=== PATIENT | male | born 1975 | race Caucasian/White ===

== ENCOUNTER 2020-08-31 10:30 | Observation (INO) ==
[2020-08-31] MEDS ORDERED: AMPICILLIN/SULBACTAM SOD 3,000 MG in 0.9 % SODIUM CHLORIDE 100 ML IV STA (10:59)
[2020-08-31] MEDS ORDERED: LIDOCAINE/EPINEPHRINE 1% 20 ML VIAL INFIL ONE (10:59)
[2020-08-31] MEDS ORDERED: dexAMETHasone**PF** 10 MG/ML VIAL IV ONE (10:59)
[2020-08-31] MEDS ORDERED: BENZOCAINE/TETRACAIN/BUTAM CAN 200 APPLN/20 GM CAN EXT STA (10:59)
--- NOTE | 2020-08-31 11:23 | ENT Consultation ---
Date of Consultation August 31, 2020 Assessment & Plan (1) Peritonsillar abscess: Unasyn and 10 mg dexamethasone in the ED. DC on 14 days Augmentin and medorl dose pack as long as feeling better. Soft diet for 48 hours. 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 History of Present Illness Few days of sore throat, ear pain and difficulty swallowing, no dyspnea Allergies Allergy/AdvReac Type Severity Reaction Status Date / Time [id number] Allergy Unknown Uncoded 08/17/04 17:29 Patient History Social History Smoking Status: Never smoker Feels Safe at Home: Yes Review of Systems Review of Systems: All systems reviewed & are unremarkable except as noted in HPI & below Physical Exam Physical Exam: AAox3 with hot potato voice oral cavity: 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 18 guage needle was then used to drain the abscess of several cc's of purulence. Patient tolerated the procedure well. Results & Data ([facility]) Vital Signs (Past 12 Hours) Vital Signs Temp Pulse Resp BP Pulse Ox 08/31/20 10:34 36.7 C 99 H 16 142/92 H 96
[2020-08-31 11:50] LABS: Basophils # (auto) 0.02 K/uL (0-0.2); Basophils % (auto) 0.2 %; Eosinophils # (auto) 0.06 K/uL (0-0.5); Eosinophils % (auto) 0.5 %; Hematocrit (blood only) 42.4 % (42-52); Hemoglobin 15.6 g/dL (14.0-18.0); Immature Granulocytes # (auto) 0.01 K/uL (0.00-0.02); Immature Granulocytes % (auto) 0.1 %; Lymphocytes # (auto) 1.69 K/uL (1.2-3.4); Mean Corpuscular Hemoglobin 31.7 pg (25-34); Mean Corpuscular Hgb Conc 36.8 g/dL (32-36); Mean Corpuscular Volume 86.2 fL (80-100); Mean Platelet Volume 9.4 fL (7.4-10.4); Monocytes % (auto) 8.3 %; Neutrophils # (auto) 9.25 K/uL (1.4-6.5); Neutrophils % (auto) 76.9 %; Platelet Count 214 K/uL (130-400); RDW Coefficient of Variation 12.1 % (11.5-14.5); RDW Standard Deviation 38.7 fL (36.4-46.3); Red Blood Count 4.92 M/uL (4.7-6.1); White Blood Count 12.03 K/uL (4.8-10.8)
[2020-08-31 12:02] LABS: BUN Creatinine Ratio 12.9 (10-20); Calcium 8.5 mg/dl (8.5-10.1); Creatinine Clr Calc Pharmacy 135.2 ml/min; Est GFR (African American) 130.4; Est GFR (Non-African American) 112.5; Potassium 3.9 mmol/L (3.5-5.1)
[2020-08-31 13:41] LABS: Influenza A virus by PCR Negative (Neg); Influenza B virus by PCR Negative (Neg); RSV by PCR Negative (Neg); SARS CoV2 RNA(COVID-19) InHosp NEGATIVE (Negative)
--- NOTE | 2020-08-31 14:22 | History & Physical Report ---
Date of Service August 31, 2020 Assessment & Plan (1) Peritonsillar abscess: Mr. Solis is a generally healthy 45 year old male who presents to [facility] ER today with a Left Peritonsillar Abscess. His complaints include left sided sore throat, left throat and ear pain(especially with swallowing), foreign body sensation, and difficulty swallowing over the past 4 days. When the foreign body sensation and difficulty swallowing were becoming worse he decided to come into the ER. No fevers, chil ls, headaches, or stiff neck. No vomiting, SOB, or stridor -- but his voice is different -- it's seem thicker than usual. He denies any chest pain. No wheezes or funny noises when he breathes. -- Evaluated by ENT in the ER. Abscess was drained by ENT. ENT recommends Medrol Dosepack and Augmentin x 14 days. -- Because patient has ongoing difficulty swallowing and ongoing foreign body sensation, decision was made to observe overnight. -- Continue IV Dexamethasone (received 10 mg in ER). -- Continue IV Unasyn. -- Diet as tolerated. -- Plan to discharge to home tomorrow if swallowing without difficulty and no airway compromise. Present on Admission?: Yes History of Present Illness Chief Complaint: -- Sore Throat, Left Sided. -- Difficult and Painful Swallowing. Primary Care Provider: Reddy Easley MD Mr. Solis is a generally healthy 45 year old male who presented to [facility] ER today complaining of a left sided sore throat, left throat and ear pain(especially with swallowing), foreign body sensation, and difficulty swallowing over the past 4 days. When the foreign body sensation and difficulty swallowing were getting worse he decided to come into the ER. No fevers, chills, headaches, or stiff neck. No vomiting, SOB, or stridor -- but his voice is different -- it's seem thicker than usual. He denies any chest pain. No wheezes or funny noises when he breathes. Allergies Allergy/AdvReac Type Severity Reaction Status Date / Time No Known Allergies Allergy Unverified 08/31/20 11:39 Home Medications Medication Instructions Recorded Confirmed Type No Known Home Medications 08/31/20 08/31/20 History amoxicillin-pot clavulanate 1 tab PO BID #28 tab 09/01/20 Rx [Augmentin] methylprednisolone [Medrol] See Rx Instructions .ROUTE 09/01/20 Rx .COMPLEX #21 tab Past Med/Surg History Social History Smoking Status: Never smoker Hx Alcohol Use: No Hx Substance Use: No Preferred Language: Georgian Communication Ability: Effective Beliefs That Will Affect Care: None Current Living Situation: Alone Feels Safe at Home: Yes Assistive Devices: None Review of Systems Review of Systems: All systems reviewed & are unremarkable except as noted in Subjective Physical Exam Physical Exam: GENERAL: Patient in no acute distress. HEENT: Head is atraumatic, normocephalic. EOM's intact. Facies symmetric. No perioral cyanosis. Left tonsillar, pharyngeal, and uvular erythema and swelling. Purulent discharge noted on left tonsil. Left sided tonsillar adenopathy. No cervical, submaxillary, or submental adenopathy. NECK: No JVD. JVP is at the level of the clavicle sitting upright. Carotid upstrokes are + 2 bilaterally. No bruits are noted. CHEST/LUNGS: Clear to auscultation throughout all lung mann. No wheezes, rales, or crackles. CVS: S1 and S2 are regular without obvious murmurs, gallops, or rubs. PMI is nondisplaced. No lifts, heaves, or thrills. No abdominal aortic or renal bruits. ABDOMINAL EXAM: Bowel sounds are present. No masses, organomegaly, or tenderness. EXTREMITIES: No clubbing or cyanosis. No edema. Intact posterior tibial and radial pulses bilaterally. NEUROLOGIC EXAM: Patient is awake, alert, and oriented. Pleasant and cooperative. Answers questions appropriately. Normal movement in all 4 extremities. Gait pattern is unremarkable. Results & Data Results & Data ([facility]) Vital Signs (Past 12 Hours) Vital Signs Temp Pulse Pulse Resp BP BP Pulse Ox 08/31/20 13:31 97 H 18 116/81 95 08/31/20 12:30 94 H 20 141/80 H 96 08/31/20 11:43 89 20 137/91 97 08/31/20 10:34 36.7 C 99 H 16 142/92 H 96 Laboratory Results Laboratory Results - last 24 hr 08/31/20 08/31/20 08/31/20 11:23 11:23 12:49 WBC 12.03 H RBC 4.92 Hgb 15.6 Hct 42.4 MCV 86.2 MCH 31.7 MCHC 36.8 H RDW Std Deviation 38.7 RDW Coeff of [place]orge 12.1 Plt Count 214 MPV 9.4 Immature Gran % (Auto) 0.1 Neut % (Auto) 76.9 Lymph % (Auto) 14.0 [place] % (Auto) 8.3 Eos % (Auto) 0.5 Baso % (Auto) 0.2 Neut # (Auto) 9.25 H Lymph # (Auto) 1.69 [place] # (Auto) 1.00 H Eos # (Auto) 0.06 Baso # (Auto) 0.02 Immature Gran # (Auto) 0.01 Sodium 139 Potassium 3.9 Chloride 105 Carbon Dioxide 30 Anion Gap 4.0 BUN 9 Creatinine 0.71 Est Cr Clr Drug Dosing 135.2 Est GFR ( Amer) 130.4 Est GFR (Non-Af Amer) 112.5 BUN/Creatinine Ratio 12.9 Glucose 94 Calcium 8.5 COVID-19 Eval Order CovFluRsv at [facility] SARS-CoV-2 (PCR) Influenza Type A (PCR) Influenza Type B (PCR) RSV (RT-PCR) 08/31/20 12:49 WBC RBC Hgb Hct MCV MCH MCHC RDW Std Deviation RDW Coeff of [place] Plt Count MPV Immature Gran % (Auto) Neut % (Auto) Lymph % (Auto) [place] % (Auto) Eos % (Auto) Baso % (Auto) Neut # (Auto) Lymph # (Auto) [place] # (Auto) Eos # (Auto) Baso # (Auto) Immature Gran # (Auto) Sodium Potassium Chloride Carbon Dioxide Anion Gap BUN Creatinine Est Cr Clr Drug Dosing Est GFR ( Amer) Est GFR (Non-Af Amer) BUN/Creatinine Ratio Glucose Calcium COVID-19 Eval Order SARS-CoV-2 (PCR) NEGATIVE Influenza Type A (PCR) Negative Influenza Type B (PCR) Negative RSV (RT-PCR) Negative Medications Administered Medications No Known Home Medications 08/31/20 [History Confirmed 08/31/20] Code Status & VTE Plan VTE Prophylaxis Plan VTE Prophylaxis will be ordered: No Reason for no VTE drug order: Treatment not indicated Reason for no VTE mechanical prophylaxis: Treatment not indicated Supervising Physician Co-Signing Physician Notes I personally saw and examined the patient. I verified all hall points and agree with Carlos Dolan PA-C with the following exceptions and/or additions: 45-year-old male. Diagnosed with peritonsillar abscess by ENT and initial plan was to discharge home although still struggling to swallow secretions at this time therefore unlikely to be able to tolerate p.o. antibiotics. He denies any fevers or chills. O/E patient is nonseptic appearing, left cervical shotty lymphadenopathy present A/P Peritonsillar abscess -continue dexamethasone and Unasyn overnight. Likely discharge tomorrow on Augmentin and Medrol Dosepak per ENT recommendations. PG Care Time/CCT Total # of Minutes Spent Total Time Spent with Patient: Total time spent is greater than 50% in coordination of care (as documented) at patient's floor/unit and/or counseling patient:25 Coding Level of Care Code 82076 OBS Care - Level 2 Diagnoses Peritonsillar abscess J36 Time Spent (min) 35
--- NOTE | 2020-08-31 16:36 | Emergency Department Note ---
Impression & Plan Peritonsillar abscess ED Provider Note NAME: ANNABELLA HAJI AGE: 45 SEX: M : 1975 ARRIVES VIA: Walk-In INFORMANT: Patient, ED PROVIDER(S): Annabella Lewis MD CHIEF COMPLAINT: Throat pain HPI: This is a 45-year-old male who presents emergency department complaining of throat pain. Patient reports approximately 3 days ago he began having a very bad sore throat. The patient reports he got to the point that he feels he is having trouble breathing. He reports nothing seems to make the throat pain better or worse. He has not started any antibiotics for it. He reports swallowing makes the pain worse. He has not taken anything for the pain including Tylenol or Toradol. He went to see his primary care physician today who sent him to the emergency department. ROS: See above HPI for pertinent positives & negatives. A total of 10 systems reviewed and were otherwise negative. PAST MEDICAL HISTORY: See Below PAST SURGICAL HISTORY: See Below FAMILY HISTORY: See Below SOCIAL HISTORY: See Below HOME MEDICATIONS: See Below ALLERGIES: See Below VITALS: See Below PHYSICAL EXAMINATION: VITAL SIGNS - Vital signs and nursing notes were reviewed. GENERAL - 45-year-old male appearing stated age who is in no acute distress. Communicates well with provider and answers questions appropriately. SKIN - Without rashes. HEAD - NC/AT. EYES - PERRL with EOMI bilaterally. Sclera anicteric. Palpebral conjunctiva pink and moist with no injection noted. EARS - No deformities of external structures noted on gross examination bilaterally. NOSE - Midline and without cyanosis. No epistaxis or purulent drainage noted. Septum midline without deviation or septal hematoma noted. MOUTH/OROPHARYNX - Without perioral cyanosis. Buccal mucosa pink and moist and without leukoplakia. large peritonsilar abscess noted left palantine arch, uvula slightly displaced NECK - Neck with FROM. Supple to palpation.No nuchal rigidity. LUNGS - Chest wall symmetric without accessory muscle use, intercostals retractions, or central cyanosis. Normal vesicular breath sounds CTA B/L. No wheezes, rales, or rhonchi appreciated. CARDIAC - RRR with S1/S2. No murmur, rubs, or gallops appreciated. ABDOMEN - Abdominal contour without pulsations or visible masses. BS normoactive all four quadrants. No tenderness, palpable masses, hepatosplenomegaly, or ascites noted. EXTREMITIES - No clubbing or peripheral cyanosis. No pretibial edema present. +3/5 radial, posterior tibial, and dorsalis pedis pulses palpated throughout. +5/5 strength noted in UE/LE bilaterally. NEUROLOGIC - Cranial nerves II through XII grossly intact. Sensory intact to light touch throughout. Patellar reflexes +2/4. PSYCH - A&Ox3 and cooperates fully with examiner. Pt is very pleasant and interacts well with examiner. MEDICAL DECISION MAKING: Patient was seen and evaluated as above in room C2. Review was performed of nursing notes and vital signs. I did review pertinent previous visits and patient history. After obtaining a thorough history and physical examination the above work up was performed. This a 45-year-old male who presents emergency department complaining of what appears to be a peritonsillar abscess on my physical examination. An IV was established, the patient was given Decadron as well as Unasyn. I did discuss the case with the ear nose and throat surgeon on-call who was kind enough to come and see the patient and drain the abscess. The patient still feels like he is having difficulty swallowing and breathing after observation in the emergency department after receiving IV Decadron. Based on this I did discuss the case with the hospitalist service who did agree to admit the patient. Patient is in agreement with the treatment plan. While in the department, I personally reevaluated the patient several times and each time the patient was found to be resting comfortably. The patient was educated upon management, educated upon todays findings/results, educated upon importance of follow up from today's visit, educated upon symptoms in which to return, had questions answered prior to discharge, verbalized understanding, and was discharged home in good condition. An order was placed for continuous cardiac monitoring. The monitor shows a rate of 105 with Normal SInus rhythm. The patient was evaluated during a period of high volume and high acuity during the global COVID-19 pandemic, and that diagnosis was suspected/considered upon their initial presentation. Their evaluation, treatment and testing was consistent with current guidelines for patients who present with complaints or symptoms that may be related to COVID-19. Patient was seen while provider was wearing PPE. Triage Nursing notes reviewed. Prior medical records reviewed Vital Signs: reviewed and remarkable for no significant abnormalities Differential diagnosis: Viral syndrome, tonsillitis, streptococcal pharyngitis, mononucleosis, peritonsillar abscess, retropharyngeal abscess, otitis, pneumonia, influenza, as well as other pathologies. ER treatment provided: See below Consultation(s): Dr Shaffer, Dr Miranda Past Med/Surg History Social History Smoking Status: Never smoker Feels Safe at Home: Yes Allergies Allergies Allergy/AdvReac Type Severity Reaction Status Date / Time No Known Allergies Allergy Unverified 08/31/20 11:39 Home Meds Home Medications Medication Instructions Recorded Confirmed No Known Home Medications 08/31/20 08/31/20 Results & Data (ED) Vital Signs Vital Signs - 24 hr 08/31/20 10:34 08/31/20 11:43 08/31/20 12:30 Temperature 36.7 C Temperature Source Temporal Artery Scan Pulse Rate 99 H Pulse Rate [Right Finger] 89 94 H Pulse Rhythm [Right Finger] Regular Regular Pulse Strength [Right Finger] Normal Normal Respiratory Rate 16 20 20 Respiratory Effort / Characteristics Non-Labored Spontaneous Non-Labored Spontaneous Respiratory Depth Normal Normal Respiratory Pattern Regular Regular Blood Pressure 142/92 H Blood Pressure [Right Arm] 137/91 141/80 H Blood Pressure Mean 108 Blood Pressure Mean [Right Arm] 106 100 Blood Pressure Position [Right Arm] Sitting Sitting Pulse Oximetry 96 97 96 Oxygen Delivery Method Room Air Room Air Sepsis Recent Fever Within 48 Hours No Sepsis New/Unexplained Change in Mental Status No Sepsis Action Taken by Nursing No Action Required 08/31/20 13:31 08/31/20 15:05 08/31/20 16:29 Temperature Temperature Source Pulse Rate Pulse Rate [Right Finger] 97 H 111 H Pulse Rhythm [Right Finger] Regular Pulse Strength [Right Finger] Normal Respiratory Rate 18 20 Respiratory Effort / Characteristics Non-Labored Spontaneous Non-Labored Spontaneous Respiratory Depth Normal Normal Respiratory Pattern Regular Regular Blood Pressure Blood Pressure [Right Arm] 116/81 133/94 Blood Pressure Mean Blood Pressure Mean [Right Arm] 92 107 Blood Pressure Position [Right Arm] Sitting Pulse Oximetry 95 94 Oxygen Delivery Method Room Air Room Air Room Air Sepsis Recent Fever Within 48 Hours Sepsis New/Unexplained Change in Mental Status Sepsis Action Taken by Nursing Laboratory Data Result diagrams: 08/31/20 11:23 08/31/20 11:23 Lab Results 08/31/20 08/31/20 08/31/20 Range/Units 11:23 11:23 12:49 WBC 12.03 H (4.8-10.8) K/uL RBC 4.92 (4.7-6.1) M/uL Hgb 15.6 (14.0-18.0) g/dL Hct 42.4 (42-52) % MCV 86.2 (80-100) fL MCH 31.7 (25-34) pg MCHC 36.8 H (32-36) g/dL RDW Std Deviation 38.7 (36.4-46.3) fL RDW Coeff of [place] 12.1 (11.5-14.5) % Plt Count 214 (130-400) K/uL MPV 9.4 (7.4-10.4) fL Immature Gran % (Auto) 0.1 % Neut % (Auto) 76.9 % Lymph % (Auto) 14.0 % [place] % (Auto) 8.3 % Eos % (Auto) 0.5 % Baso % (Auto) 0.2 % Neut # (Auto) 9.25 H (1.4-6.5) K/uL Lymph # (Auto) 1.69 (1.2-3.4) K/uL [place] # (Auto) 1.00 H (0.11-0.59) K/uL Eos # (Auto) 0.06 (0-0.5) K/uL Baso # (Auto) 0.02 (0-0.2) K/uL Immature Gran # (Auto) 0.01 (0.00-0.02) K/uL Sodium 139 (136-145) mmol/L Potassium 3.9 (3.5-5.1) mmol/L Chloride 105 (98-107) mmol/L Carbon Dioxide 30 (21-32) mmol/L Anion Gap 4.0 (3-11) BUN 9 (7-18) mg/dl Creatinine 0.71 (0.6-1.4) mg/dl Est Cr Clr Drug Dosing 135.2 ml/min Est GFR ( Amer) 130.4 Est GFR (Non-Af Amer) 112.5 BUN/Creatinine Ratio 12.9 (10-20) Glucose 94 (70-99) mg/dl Calcium 8.5 (8.5-10.1) mg/dl COVID-19 Eval Order CovFluRsv at [facility] SARS-CoV-2 (PCR) (Negative) Influenza Type A (PCR) (Neg) Influenza Type B (PCR) (Neg) RSV (RT-PCR) (Neg) 08/31/20 Range/Units 12:49 WBC (4.8-10.8) K/uL RBC (4.7-6.1) M/uL Hgb (14.0-18.0) g/dL Hct (42-52) % MCV (80-100) fL MCH (25-34) pg MCHC (32-36) g/dL RDW Std Deviation (36.4-46.3) fL RDW Coeff of [place] (11.5-14.5) % Plt Count (130-400) K/uL MPV (7.4-10.4) fL Immature Gran % (Auto) % Neut % (Auto) % Lymph % (Auto) % [place] % (Auto) % Eos % (Auto) % Baso % (Auto) % Neut # (Auto) (1.4-6.5) K/uL Lymph # (Auto) (1.2-3.4) K/uL [place] # (Auto) (0.11-0.59) K/uL Eos # (Auto) (0-0.5) K/uL Baso # (Auto) (0-0.2) K/uL Immature Gran # (Auto) (0.00-0.02) K/uL Sodium (136-145) mmol/L Potassium (3.5-5.1) mmol/L Chloride (98-107) mmol/L Carbon Dioxide (21-32) mmol/L Anion Gap (3-11) BUN (7-18) mg/dl Creatinine (0.6-1.4) mg/dl Est Cr Clr Drug Dosing ml/min Est GFR ( Amer) Est GFR (Non-Af Amer) BUN/Creatinine Ratio (10-20) Glucose (70-99) mg/dl Calcium (8.5-10.1) mg/dl COVID-19 Eval Order SARS-CoV-2 (PCR) NEGATIVE (Negative) Influenza Type A (PCR) Negative (Neg) Influenza Type B (PCR) Negative (Neg) RSV (RT-PCR) Negative (Neg) Administered Medications Discontinued Medications Benzocaine/Butamben/Tetracaine HCl (Benzocaine/Tetracain/Butam Can 200 Appln/20 Gm Can) 1 appln EXT NOW STA Stop: 08/31/20 11:00 Last Admin: 08/31/20 11:23 Dose: 1 appln Documented by: [id number] Dexamethasone Sodium Phosphate (DexamethasonePf 10 Mg/Ml Vial) 10 mg IV NOW ONE Stop: 08/31/20 11:00 Last Admin: 08/31/20 11:23 Dose: 10 mg Documented by: [id number] Ampicillin Sodium/Sulbactam Sodium 3,000 mg/ Sodium Chloride 108 mls @ 200 mls/hr IV NOW STA; Protocol Stop: 08/31/20 11:31 Last Infusion: 08/31/20 12:06 Dose: 0 mls/hr Documented by: [id number] Admin: 08/31/20 11:36 Dose: 200 mls/hr Documented by: [id number] Lidocaine/Epinephrine (Lidocaine/Epinephrine 1% 20 Ml Vial) 20 ml INFIL NOW ONE Stop: 08/31/20 11:00 Last Admin: 08/31/20 11:23 Dose: 1 ml Documented by: [id number] Discharge Plan Visit Data Chief Complaint: Throat Pain Stated Complaint: LUMP SWELLING ON ROOF OF MOUTH ED Provider: Annabella Lewis Discharge Problem: Peritonsillar abscess Discharge Instructions Interventions: ED Discharge Assessment Last Done: 08/31/20 16:29 Forms Stand Alone Forms: [facility] Prescriptions Prescriptions: No Action No Known Home Medications RF: 0 Referrals Referrals: Bony Easley MD [Primary Care Provider] -
[2020-08-31] MEDS ORDERED: ACETAMINOPHEN 325 MG TAB PO PRN (16:43)
[2020-08-31] MEDS: AMPICILLIN/SULBACTAM SOD 3,000 MG in 0.9 % SODIUM CHLORIDE 100 ML IV SCH ×2 (17:06→23:10)
[2020-08-31] MEDS: dexAMETHasone 6 MG in SYRINGE 0 ML IV SCH (17:06)
[2020-09-01] MEDS: dexAMETHasone 6 MG in SYRINGE 0 ML IV SCH ×2 (01:09→08:13)
[2020-09-01] MEDS: AMPICILLIN/SULBACTAM SOD 3,000 MG in 0.9 % SODIUM CHLORIDE 100 ML IV SCH ×2 (05:51→11:08)
--- NOTE | 2020-09-01 10:53 | Hospitalist Progress Note ---
Date of Service September 01, 2020 Assessment & Plan (1) Peritonsillar abscess: Left peritonsillar abscess underwent incision and drainage in the ED on 427 by ENT. He was treated while hospitalized with Unasyn and dexamethasone. He is doing much better. He will be discharged home today on 14 days of Augmentin and a Medrol Dosepak. He will follow up with ENT in 2 weeks. DVT prophylaxis: Ambulation Disposition: Discharge to home today Admission and Anticipated Discharge Date Admission Date: August 31, 2020 Subjective The patient is alert and oriented. He is swallowing without difficulty although he still has some discomfort. No fever. He will be discharged home today on Augmentin for 14 days and a Medrol Dosepak. He will follow up with ENT in 2 weeks. Review of Systems Review of Systems: All systems reviewed & are unremarkable except as noted in HPI & below Physical Exam Physical Exam: General-alert and oriented x3, no fevers, no chills HEENT-head atraumatic and normocephalic, TMs intact bilaterally, pupils equal and reactive to light, extraocular muscles intact Neck-no lymphadenopathy or thyromegaly, trachea midline. No stridor Chest-clear to auscultation percussion. No rales wheezing or rhonchi Cardiac-regular rate and rhythm, normal S1 and S2, no murmurs Abdomen-normal bowel sounds, nontender, no hepatosplenomegaly Extremities-no cyanosis, clubbing, or edema Neuro-cranial nerves II through XII intact, motor and sensory function within normal limits, strength symmetrical 5/5, no focal deficits Psych-normal affect, normal mood Results & Data Results & Data ([facility]) Vital Signs (Past 12 Hours) Vital Signs Temp Pulse Resp BP Pulse Ox 09/01/20 07:52 36.9 C 88 16 116/68 95 09/01/20 00:01 37.4 C 83 20 118/73 93 Laboratory Results 08/31/20 11:23 08/31/20 11:23 PG Care Time/CCT Total # of Minutes Spent Total Time Spent with Patient: Total time spent is greater than 50% in coordination of care (as documented) at patient's floor/unit and/or counseling patient: Coding Level of Care Code 50208 Subseq Hosp Care Lvl 3 Diagnoses Peritonsillar abscess J36
--- NOTE | 2020-09-02 14:34 | Discharge Summary ---
Date of Service September 02, 2020 Admission HPI Per Admitting Provider Mr. Solis is a generally healthy 45 year old male who presented to [facility] ER today complaining of a left sided sore throat, left throat and ear pain(especially with swallowing), foreign body sensation, and difficulty swallowing over the past 4 days. When the foreign body sensation and difficulty swallowing were getting worse he decided to come into the ER. No fevers, chills, headaches, or stiff neck. No vomiting, SOB, or stridor -- but his voice is different -- it's seem thicker than usual. He denies any chest pain. No wheezes or funny noises when he breathes. Principal Diagnosis Peritonsillar abscess Discharge Data Allergies Allergy/AdvReac Type Severity Reaction Status Date / Time No Known Allergies Allergy Unverified 08/31/20 11:39 Consultations 08/31/20 11:19 Consult Otolaryngology (Head and Neck) Stat 08/31/20 12:27 ED Decision to Admit Stat Hospital Course (1) Peritonsillar abscess: Left peritonsillar abscess underwent incision and drainage in the ED on 427 by ENT. He was treated while hospitalized with Unasyn and dexamethasone. He is doing much better. He will be discharged home today on 14 days of Augmentin and a Medrol Dosepak. He will follow up with ENT in 2 weeks. DVT prophylaxis: Ambulation Disposition: Discharge to home today Total Time Total Time Spent Total Time Spent (In Minutes): 35 minutes Total Time Includes: Examination of the Patient, Discharge Planning and Medication Reconciliation Discharge Plan Discharge Items Patient Disposition: Home - Self-Care Reason For Visit: PERITONSILLAR ABSCESS Discharge Diagnosis: Left peritonsillar abscess Activity: Resume your previous activity Non-emergency contact: Primary Care Provider Call non-emergency contact if: you have any medication questions and your symptoms worsen Follow-up/Referrals: Bony Easley MD [Primary Care Provider] - 09/07/20 1:30 pm (Pt is scheduled September 07 at 1:30 with Joanne Sanchez at the [facility] ) Maria Fernanda Shaffer MD [Surgeon] - 09/14/20 2:00 pm Diet: Regular and Other - See Diet Comment Diet Comment: Soft diet for the next 2 days Addtl Attending Provider Instructions: Eat a soft diet for the next 2 days. Take Augmentin for 2 weeks. Take Medrol Dosepak as directed. See ENT specialist in 2 weeks Pending Studies at Discharge: No Stand-Alone Forms: My [facility], Work/School Release (Inpt), Smoking Cessation Medications and DC Order Prescriptions: New amoxicillin-pot clavulanate [Augmentin] 875-125 mg tablet 1 tab PO BID Qty: 28 RF: 0 methylprednisolone [Medrol] 4 mg tablet See Rx Instructions .ROUTE .COMPLEX Qty: 21 RF: 0 No Action No Known Home Medications RF: 0 Discharge Orders: Discharge Order (Routine); Ordered 09/01/20 Ordered By: Dylan Hurst/Other Patient Handouts: Peritonsillar Abscess Admission Data Admit Date/Time: 08/31/20 13:48 Attending Provider: Dylan Whitfield Admit Provider: Ulysses Miranda Primary Care Provider: oBny Easley Other Providers: Maria Fernanda Shaffer Other Interventions: Discharge Summary Assessment (RN) Last Done: 09/01/20 08:08 Coding Level of Care Code D/C Day Management >30 mins Diagnoses Peritonsillar abscess J36
== END 2020-09-01 13:30 | disposition home or self-care (01) ==
LOC: ED 10:30 → 3W 10:30 → SUATTDRO 13:48 → 3W 16:29
DX: J36 Peritonsillar abscess